=== PATIENT | male | born 1985 | race Caucasian/White ===

== ENCOUNTER 2018-07-08 22:31 | Emergency (ER) | payer BC, SELFPAY ==
[2018-07-08 22:34] VITALS: BP 136/92; PULSE 90; RESP 16; TEMP 36.3; O2SAT 98
--- NOTE | 2018-07-08 22:47 | DI.RAD_ITS ---
SYMPTOM/DIAGNOSIS: COUGH, SOB PA AND LATERAL CHEST: Comparison is made with 26 November 2017. The heart size is normal. The lungs are clear. No infiltrate or effusion is seen. IMPRESSION: Negative chest x-ray
--- NOTE | 2018-07-08 22:48 | W.ED.GENAD ---
Discharge Plan Disposition Patient Disposition: HOME Discharge Details Chief Complaint: RespSymp Clinical Impression: Pneumonia Primary Care Provider: Ashok Acuña ED Provider: Brown Hayden Home Meds and New Rx's Prescriptions: New doxycycline hyclate 100 mg tablet 100 mg PO BID Qty: 11 RF: 0 Continued naproxen 500 MG tablet 500 mg PO PRN PRNRF: 0 Prilosec OTC 20 MG tablet,delayed release (DR/EC) 20 mg PO PRN PRNRF: 0 Discharge Instructions Instructions: Pneumonia (ED) Additional Instructions: Please drink plenty of fluids to stay hydrated. Allow for plenty of rest. Take your antibiotic as prescribed. Please contact your primary care physician to arrange follow-up. Return to the ER for any worsening or new concerning symptoms. Stand Alone Forms: Work Release Referrals: Ashok Acuña MD [Primary Care Provider] - Medical Decision Making 10:54p -- 32-year-old male here with cough, congestion, and shortness of breath over the past 3 days. Patient is saturating well in no respiratory distress. Consider pneumonia versus bronchitis. 11:30 -- cxr reviewed and interpreted by me: ? retrocardiac LLL infiltrate. Plan to treat with doxycycline. Patient advised to rest and drink plenty of fluids. HPI General Mode of arrival: ambulatory. Date/Time Provider Initiated Documentation: 07/08/18 22:47. Limitations to Documentation: no limitations. Information obtained by: patient. HPI Narrative: 32-year-old male here with chief complaint of shortness of breath. Patient notes that for the past 3 days he has had worsening cough with shortness of breath and sinus congestion. Symptoms are moderate. Worse with exertion. Cough is nonproductive. He has no associated fever or aches. Related Data Home Medications Medication Instructions Recorded Confirmed Prilosec OTC 20 mg PO PRN PRN 04/28/16 07/08/18 naproxen 500 mg PO PRN PRN 04/28/16 07/08/18 doxycycline hyclate 100 mg PO BID #11 tab 07/08/18 Previous Rx's Medication Instructions Recorded doxycycline hyclate 100 mg PO BID #11 tab 07/08/18 Allergies Allergy/AdvReac Type Severity Reaction Status Date / Time amoxicillin Allergy Unknown had it as Verified 07/08/18 22:36 a child Penicillins Allergy Unknown Verified 07/08/18 22:36 General Stated Complaint: RespSymp SEVERINO: 3 Review of Systems Constitutional Denies fever(s) ENT Reports nasal congestion Cardiovascular Reports dyspnea Respiratory Reports dyspnea PFSH Social History Smoking/Tobacco Use Status: Former Tobacco Use Exam Const General: cooperative and no acute distress HENMT Head: normocephalic and atraumatic Mouth: moist mucous membranes Throat: uvula midline, no peritonsillar masses and posterior oropharynx abnormal erythema Eyes Conjunctivae: normal conjunctivae Sclera: normal sclerae EOM: EOM intact bilaterally Neck Neck: trachea midline and supple Resp Effort & Inspection: normal respiratory effort and cough Auscultation: no rales, rhonchi and no wheezes Cardio Jugular venous pressure: no JVD Rate: regular rate and not tachycardic Rhythm: regular rhythm GI Palpation: soft, not firm, no guarding, no masses, not rigid and nontender Skin General skin exam: no rashes or lesions noted Neuro General: alert, awake, oriented x3 and tone normal Extrem General: no edema Psych Appearance: grossly normal Speech and Movement: speech and movement normal Course Vital Signs Temperature 36.3 C L 07/08/18 22:34 Pulse 90 07/08/18 22:34 Respiratory Rate 16 07/08/18 22:34 Blood Pressure 136/92 H 07/08/18 22:34 Pulse Oximetry 98 07/08/18 22:34 Temperature 36.3 C L 07/08/18 22:34 Temperature Source Temporal Artery Scan 07/08/18 22:34 Pulse 90 07/08/18 22:34 Respiratory Rate 16 07/08/18 22:34 Respiratory Effort 07/08/18 22:38 Respiratory Depth Normal 07/08/18 22:38 Blood Pressure 136/92 H 07/08/18 22:34 Blood Pressure Position Sitting 07/08/18 22:34 Pulse Oximetry 98 07/08/18 22:34 Oxygen Delivery Method Room Air 07/08/18 22:34 Oxygen Flow Rate 0 07/08/18 22:34
--- NOTE | 2018-07-08 22:57 | ED.GENADUL_ITS ---
Discharge Plan Disposition Patient Disposition: HOME Discharge Details Chief Complaint: RespSymp Clinical Impression: Pneumonia Primary Care Provider: Ashok Acuña ED Provider: Brown Hayden Home Meds and New Rx's Prescriptions: New doxycycline hyclate 100 mg tablet 100 mg PO BID Qty: 11 RF: 0 Continued naproxen 500 MG tablet 500 mg PO PRN PRNRF: 0 Prilosec OTC 20 MG tablet,delayed release (DR/EC) 20 mg PO PRN PRNRF: 0 Discharge Instructions Instructions: Pneumonia (ED) Additional Instructions: Please drink plenty of fluids to stay hydrated. Allow for plenty of rest. Take your antibiotic as prescribed. Please contact your primary care physician to arrange follow-up. Return to the ER for any worsening or new concerning symptoms. Stand Alone Forms: Work Release Referrals: Ashok Acuña MD [Primary Care Provider] - Medical Decision Making 10:54p -- 32-year-old male here with cough, congestion, and shortness of breath over the past 3 days. Patient is saturating well in no respiratory distress. Consider pneumonia versus bronchitis. 11:30 -- cxr reviewed and interpreted by me: ? retrocardiac LLL infiltrate. Plan to treat with doxycycline. Patient advised to rest and drink plenty of fluids. HPI General Mode of arrival: ambulatory . Date/Time Provider Initiated Documentation: 07/08/18 22:47 . Limitations to Documentation: no limitations . Information obtained by: patient . HPI Narrative: 32-year-old male here with chief complaint of shortness of breath. Patient notes that for the past 3 days he has had worsening cough with shortness of breath and sinus congestion. Symp toms are moderate. Worse with exertion. Cough is nonproductive. He has no associated fever or aches. Related Data Home Medications Medication Instructions Recorded Confirmed Prilosec OTC 20 mg PO PRN PRN 04/28/16 07/08/18 naproxen 500 mg PO PRN PRN 04/28/16 07/08/18 doxycycline hyclate 100 mg PO BID #11 tab 07/08/18 Previous Rx's Medication Instructions Recorded doxycycline hyclate 100 mg PO BID #11 tab 07/08/18 Allergies Allergy/AdvReac Type Severity Reaction Status Date / Time amoxicillin Allergy Unknown had it as Verified 07/08/18 22:36 a child Penicillins Allergy Unknown Verified 07/08/18 22:36 General Stated Complaint: RespSymp SEVERINO: 3 Review of Systems Constitutional Denies fever(s) ENT Reports nasal congestion Cardiovascular Reports dyspnea Respiratory Reports dyspnea PFSH Social History Smoking/Tobacco Use Status: Former Tobacco Use Exam Const General: cooperative and no acute distress HENMT Head: normocephalic and atraumatic Mouth: moist mucous membranes Throat: uvula midline, no peritonsillar masses and posterior oropharynx abnormal erythema Eyes Conjunctivae: normal conjunctivae Sclera: normal sclerae EOM: EOM intact bilaterally Neck Neck: trachea midline and supple Resp Effort & Inspection: normal respiratory effort and cough Auscultation: no rales, rhonchi and no wheezes Cardio Jugular venous pressure: no JVD Rate: regular rate and not tachycardic Rhythm: regular rhythm GI Palpation: soft, not firm, no guarding, no masses, not rigid and nontender Skin General skin exam: no rashes or lesions noted Neuro General: alert, awake, oriented x3 and tone normal Extrem General: no edema Psych Appearance: grossly normal Speech and Movement: speech and movement normal Course Vital Signs Temperature 36.3 C L 07/08/18 22:34 Pulse 90 07/08/18 22:34 Respiratory Rate 16 07/08/18 22:34 Blood Pressure 136/92 H 07/08/18 22:34 Pulse Oximetry 98 07/08/18 22:34 Temperature 36.3 C L 07/08/18 22:34 Temperature Source Temporal Artery Scan 07/08/18 22:34 Pulse 90 07/08/18 22:34 Respiratory Rate 16 07/08/18 22:34 Respiratory Effort 07/08/18 22:38 Respiratory Depth Normal 07/08/18 22:38 Blood Pressure 136/92 H 07/08/18 22:34 Blood Pressure Position Sitting 07/08/18 22:34 Pulse Oximetry 98 07/08/18 22:34 Oxygen Delivery Method Room Air 07/08/18 22:34 Oxygen Flow Rate 0 07/08/18 22:34
[2018-07-08] MEDS: Doxycycline Hyclate 100 MG CAP PO (23:25)
--- NOTE | 2018-07-08 23:31 | DI.VRAD_ITS ---
EXAM: XR Chest, 2 Views EXAM DATE/TIME: 07/08/2018 10:48 PM CLINICAL HISTORY: 32 years old, male; Signs and symptoms; Cough and shortness of breath; Patient HX: Cough, SOB; Per PT: 3 days TECHNIQUE: XR of the chest, 2 views. COMPARISON: CR CHEST 2 VIEWS PA,LAT 11/26/2017 10:25 PM FINDINGS: Lungs: Unremarkable. No consolidation. Pleural space: Unremarkable. No pleural effusion. No pneumothorax. Heart/Mediastinum: Unremarkable. No cardiomegaly. Bones/joints: Unremarkable. IMPRESSION: No acute findings. Dictated and Authenticated by: Buster Garcia MD. Ordering:GABRIELLA Dasilva MD
== END 2018-07-08 23:28 | disposition home or self-care (01) ==
LOC: ER 23:34
PROVIDERS: Emergency Provider Student in an Organized Health Care Education/Training Program; PCP General Practice
DX: J18.9 Pneumonia, unspecified organism (principal); Z87.891 Personal history of nicotine dependence
CPT/HCPCS: 99283; 71046

== ENCOUNTER 2018-08-01 22:27 | Emergency (ER) | payer BC, SELFPAY ==
[2018-08-01 22:31] VITALS: BP 141/82; PULSE 102; TEMP 37.2; O2SAT 97
--- NOTE | 2018-08-02 00:30 | ED.GENADUL_ITS ---
Discharge Plan Disposition Patient Disposition: HOME Condition: Stable Discharge Details Chief Complaint: RespSymp Clinical Impression: Laryngitis, Bronchitis Primary Care Provider: Ashok Acuña ED Provider: Courtney Garcia Home Meds and New Rx's Prescriptions: New prednisone 50 mg tablet 50 mg PO DAILY 5 Days Qty: 5 RF: 0 azithromycin [Zithromax] 500 mg tablet 500 mg PO DAILY 5 Days Qty: 5 RF: 0 No Action naproxen 500 MG tablet 500 mg PO PRN PRNRF: 0 Prilosec OTC 20 MG tablet,delayed release (DR/EC) 20 mg PO PRN PRNRF: 0 Discharge Instructions Instructions: Laryngitis (ED), Acute Bronchitis (ED) Additional Instructions: Use your albuterol inhaler that you have at home as needed and directed for any shortness of breath or wheezing. Take the steroids as directed. If you have no relief in symptoms over the next 2-3 days, you may start the antibiotics. Rest your voice over the next few days. Drink plenty of fluids, get plenty of rest, drink hot water with lemon. Follow-up with your primary care doctor in 1 week for reevaluation as needed. Return immediately to the emergency department any worsening or new concerning symptoms. Discharge Data Discharge Physician: Courtney Garcia Medical Decision Making 33 yo male who presents with hoarse voice, cough intermittently dry and productive of yellow sputum, and occasional shortness of breath for the past month. Seen here last month and diagnosed with pneumonia and given doxycycline. CXR was ultimately read as negative for pneumonia. Patient is noted to have hoarse faint voice and exam consistent with laryngitis. Vitals within normal limits. Normal respiratory rate, oxygen saturation and afebrile. Lungs clear to auscultation. Normal ENT exam. Patient states he has had pneumonia in the past and states this does not feel similar with this. Patient was offered but is declining chest x-ray. Discussed with patient that his symptoms can certainly be viral, and to use symptomatic treatment including [id number] cough and cold medication, resting his voice, plenty of fluids. We will send home with a prescription for prednisone. He states he has an albuterol inhaler at home to use as needed for any shortness of breath or wheezing. We will also sent home with a prescription for antibiotics to take if his symptoms do not improve or worsen. He is instructed to follow-up with his primary care doctor for reevaluation and return here at any time if worse HPI General Date/Time Provider Initiated Documentation: 08/01/18 22:33 . Related Data Home Medications Medication Instructions Recorded Confirmed Prilosec OTC 20 mg PO PRN PRN 04/28/16 08/01/18 naproxen 500 mg PO PRN PRN 04/28/16 08/01/18 azithromycin [Zithromax] 500 mg PO DAILY 5 Days #5 tab 08/02/18 prednisone 50 mg PO DAILY 5 Days #5 tab 08/02/18 Previous Rx's Medication Instructions Recorded azithromycin [Zithromax] 500 mg PO DAILY 5 Days #5 tab 08/02/18 prednisone 50 mg PO DAILY 5 Days #5 tab 08/02/18 Allergies Allergy/AdvReac Type Severity Reaction Status Date / Time amoxicillin Allergy Unknown had it as Verified 07/08/18 22:36 a child Penicillins Allergy Unknown Verified 07/08/18 22:36 General Stated Complaint: RespSymp SEVERINO: 3 PFSH Social History Smoking and Tabacco status: Former Tobacco Use Course Vital Signs Temperature 99.0 F 08/01/18 22:31 Pulse 102 H 08/01/18 22:31 Blood Pressure 141/82 H 08/01/18 22:31 Pulse Oximetry 97 08/01/18 22:31 Temperature 99.0 F 08/01/18 22:31 Temperature Source Skin 08/01/18 22:31 Pulse 102 H 08/01/18 22:31 Respiratory Effort Non-Labored 08/01/18 22:36 Respiratory Depth Normal 08/01/18 22:36 Blood Pressure 141/82 H 08/01/18 22:31 Blood Pressure Position Sitting 08/01/18 22:31 Pulse Oximetry 97 08/01/18 22:31 Oxygen Delivery Method Room Air 08/01/18 22:31 Oxygen Flow Rate 0 08/01/18 22:31 Pain Level 0 08/01/18 22:31
== END 2018-08-02 00:40 | disposition home or self-care (01) ==
PROVIDERS: Emergency Provider Physician Assistant; PCP General Practice
DX: J18.9 Pneumonia, unspecified organism (principal); J04.0 Acute laryngitis; Z87.891 Personal history of nicotine dependence
CPT/HCPCS: 99283

== ENCOUNTER 2018-12-23 22:10 | Emergency (ER) | payer BC, SELFPAY ==
[2018-12-23 22:15] VITALS: BP 123/66; PULSE 77; RESP 18; TEMP 36.8; O2SAT 98
--- NOTE | 2018-12-23 23:29 | ED.GENADUL_ITS ---
Discharge Plan Disposition Patient Disposition: HOME Condition: Stable Discharge Details Chief Complaint: Orthopedic Clinical Impression: Strain of right knee Primary Care Provider: Ashok Acuña ED Provider: Naveen Sahu Home Meds and New Rx's Prescriptions: No Action multivitamin Tablet 1 tab PO DAILY RF: 0 glucosamine sulfate [Glucosamine] 500 mg Tablet 1,000 mg PO DAILY RF: 0 ibuprofen [Advil] 200 mg Tablet 400 mg PO QID PRNRF: 0 loratadine [Claritin] 10 mg Tablet 10 mg PO DAILY RF: 0 Fish Oil 120-180 mg Capsule 2 cap PO DAILY RF: 0 naproxen 500 MG tablet 500 mg PO PRN PRNRF: 0 Prilosec OTC 20 MG tablet,delayed release (DR/EC) 20 mg PO PRN PRNRF: 0 Discharge Instructions Instructions: Knee Pain (ED) Additional Instructions: you can take 1000mg tylenol and 600mg ibuprofen every 6 hours for pain as needed if you develop fevers, severe worsening of pain or feel more ill return to the emergency department follow up with your primary care provider if pain continues in a week Stand Alone Forms: Work Release Medical Decision Making 33 yo male comes in with months of knee pain but increased significantly over the past day after he was walking at work at a [employer] and heard a pop. Did not fall or have any trauma. HAs had pain since so came here. He is able to fully range the right knee and bear weight but does limp. He has no swelling or deformity of the knee. Has pain over the medial joint line. No significant swelling. I doubt fracutre given lack of trauma, full rom and bearing weight, I did offer to do an xray but pt declined which I feel is reasonable. I feel this is likely a strain vs meniscus injury. Will place him in knee brace and crutches prn and will have him f/u with pcp in a week, if still in pain may need an MRI. Differential Diagnosis meniscus injury, ligamentous injury, strain HPI General Mode of arrival: ambulatory . Date/Time Provider Initiated Documentation: 12/23/18 22:58 . Limitations to Documentation: no limitations . Information obtained by: patient . History of Present Illness 33 year old M presents to the emergency department with the chief complaint of right knee pain, described as moderate, Quality is described as aching, and is localized to the right and lower extremity. Patient reports no radiation. Patient started experiencing this day(s) (1) and it has been constant. No relieving factors improve symptom(s), No exacerbating factors reported . Patient did receive the following treatments prior to arrival, none Related Data Home Medications Medication Instructions Recorded Confirmed Prilosec OTC 20 mg PO PRN PRN 04/28/16 12/23/18 naproxen 500 mg PO PRN PRN 04/28/16 12/23/18 docosahexanoic acid-epa [Fish Oil] 2 cap PO DAILY 12/23/18 12/23/18 glucosamine sulfate [Glucosamine] 1,000 mg PO DAILY 12/23/18 12/23/18 ibuprofen [Advil] 400 mg PO QID PRN 12/23/18 12/23/18 loratadine [Claritin] 10 mg PO DAILY 12/23/18 12/23/18 multivitamin 1 tab PO DAILY 12/23/18 12/23/18 Allergies Allergy/AdvReac Type Severity Reaction Status Date / Time amoxicillin Allergy Unknown had it as Verified 07/08/18 22:36 a child Penicillins Allergy Unknown Verified 07/08/18 22:36 General Stated Complaint: Orthopedic SEVERINO: 4 Review of Systems Review of Systems All systems reviewed & are unremarkable except as noted in HPI and below Constitutional Denies chills, Denies fever(s) and Denies weakness Cardiovascular Denies chest pain and Denies dyspnea Respiratory Denies dyspnea Gastrointestinal Denies abdominal pain, Denies nausea and Denies vomiting Neurologic Denies weakness [facility] Social History Smoking/Tobacco Use Status: Former Tobacco Use Alcohol Intake: current Alcohol Intake frequency: holidays/special occasions only Alcohol type: beer and hard liquor Drug use: Never Substance use type: does not use Do you feel safe at home: Yes Do you feel safe in your relationship?: Yes Exam Const General: no acute distress Orientation: alert HENMT Head: normal to inspection Ears: external ears normal General nose exam: external nose normal Mouth: moist mucous membranes Eyes General: appearance normal, both eyes and all related structures Neck Neck: normal visual inspection Resp Effort & Inspection: normal respiratory effort and able to speak in complete sentences Cardio Rate: regular rate Skin General skin exam: no rashes or lesions noted Neuro General: alert and oriented x3 Extrem General: normal to inspection Psych Mental Status: mental status grossly normal Course Vital Signs Temperature 36.8 C 12/23/18 22:15 Pulse 77 12/23/18 22:15 Respiratory Rate 18 12/23/18 22:15 Blood Pressure 123/66 12/23/18 22:15 Pulse Oximetry 98 12/23/18 22:15 Temperature 36.8 C 12/23/18 22:15 Temperature Source Skin 12/23/18 22:15 Pulse 77 12/23/18 22:15 Respiratory Rate 18 12/23/18 22:15 Respiratory Effort Non-Labored 12/23/18 22:21 Blood Pressure 123/66 12/23/18 22:15 Blood Pressure Position Supine 12/23/18 22:15 Pulse Oximetry 98 12/23/18 22:15 Oxygen Delivery Method Room Air 12/23/18 22:15 Oxygen Flow Rate 0 12/23/18 22:15 Pain Level 6 12/23/18 22:15 Comment 12/23/18 22:15
--- NOTE | 2018-12-24 08:12 | NUR.NOTE ---
F/U referral faxed to pcp Dr Acuña.Nursing Note:
== END 2018-12-23 23:39 | disposition home or self-care (01) ==
PROVIDERS: Emergency Provider Emergency Medicine; PCP General Practice
DX: S83.91XA Sprain of unspecified site of right knee, initial encounter (principal); X58.XXXA Exposure to other specified factors, initial encounter
CPT/HCPCS: 29505; 99283; 99282; L1810

== ENCOUNTER 2018-12-31 11:03 | Outpatient (CLI) | payer BC, SELFPAY ==
--- NOTE | 2018-12-31 11:01 | DI.RAD_ITS ---
SYMPTOMS/DIAGNOSIS: PAIN X 1 WK RIGHT KNEE: Three views. No priors. No bone, joint or soft tissue abnormality is identified.
== END 2018-12-31 11:23 ==
PROVIDERS: PCP General Practice; Visit Provider General Practice
DX: M25.561 Pain in right knee (principal)
CPT/HCPCS: 73562

== ENCOUNTER 2019-01-13 00:52 | Outpatient (CLI) | payer BC, SELFPAY ==
--- NOTE | 2019-01-13 11:45 | DI.MRI_ITS ---
SYMPTOMS/DIAGNOSIS: RT KNEE PAIN, M25.569 MRI OF THE RIGHT KNEE: Comparison is made with plain films dated [id number]. Fat suppressed T 2 axial, proton density and fat suppressed T 2 axial and coronal and proton density oblique sagittal sequences were performed. There is a normal quantity of joint fluid. The cruciate and collateral ligaments and extensor mechanism appear intact. There is mildly increased signal in the medial meniscus but no definite surfacing tear. No cartilage defects are identified. The marrow signal appears normal. IMPRESSION: Mildly increased intrasubstance signal in the medial meniscus without definite tear.
== END 2019-01-13 01:12 ==
PROVIDERS: PCP General Practice; Visit Provider Orthopaedic Surgery
DX: M25.561 Pain in right knee (principal)
CPT/HCPCS: 73721

== ENCOUNTER 2019-04-21 01:15 | Outpatient (CLI) | payer BC, SELFPAY ==
--- NOTE | 2019-04-21 11:42 | DI.MRI_ITS ---
EXAM: MR LOWER JOINT RT WO CLINICAL HISTORY: PAIN M23.91 INTERNAL DERANGEMENT RT KNEE. TECHNIQUE: Multiplanar multisequence MRI was performed. FINDINGS: The anterior cruciate and posterior cruciate ligaments are intact. The medial and lateral collateral ligaments are intact. The extensor mechanism, medial and lateral retinaculum and popliteus tendon are unremarkable. The articular cartilage is unremarkable. There is no evidence of a meniscal tear. Marrow signal is within normal limits. No evidence of an occult fracture or avascular necrosis. There is a small amount of fluid in the joint space. No significant popliteal cyst is seen. There i s edema seen in the soft tissues around the knee. No focal fluid collection is seen to suggest an ab scess. The muscles show normal signal and size. No evidence of muscular fatty atrophy. IMPRESSION: 1. No evidence of a meniscal or ligament tear. 2. Edema in the soft tissues about the knee.
== END 2019-04-21 01:35 ==
PROVIDERS: PCP General Practice; Visit Provider Orthopaedic Surgery
DX: M25.561 Pain in right knee (principal); M23.91 Unspecified internal derangement of right knee; M25.461 Effusion, right knee; M79.89 Other specified soft tissue disorders
CPT/HCPCS: 73721

== ENCOUNTER 2019-09-16 12:39 | Outpatient (CLI) | payer BC, SELFPAY ==
[2019-09-18 18:37] LABS: SARS-CoV-2 RNA Undetected (Undetected); SARS-CoV-2 Specimen Source Nasopharynx
== END 2019-09-16 12:59 ==
PROVIDERS: Visit Provider Family Medicine
DX: Z11.59 Encounter for screening for other viral diseases (principal)
CPT/HCPCS: U0003

== ENCOUNTER 2019-12-05 10:20 | Outpatient (REF) | payer BC, SELFPAY ==
[2019-12-05 16:52] LABS: Anion Gap 10.8 mmol/L (3-11); BUN 12 mg/dL (7-18); CO2 26.2 mmol/L (21.0-32.0); CREATININE 1.03 mg/dL (0.70-1.30); Calcium 9.2 mg/dL (8.5-10.1); Calculated LDL 99 mg/dL (<100); Chloride 103 mmol/L (98-107); Cholesterol 187 mg/dL (<200); Glucose 95 mg/dL (74-106); HDL Cholesterol 34 mg/dL (40-60); Sodium 140 mmol/L (136-145); TSH 3.82 uIU/mL (0.36-3.74); Triglyceride 272 mg/dL (<150)
[2019-12-05 17:49] LABS: FREE T4 0.95 ng/dL (0.76-1.46)
[2019-12-11 11:40] LABS: Testosterone, Total 379 ng/dL (240-950)
== END 2019-12-05 10:40 ==
LOC: NCHCN 10:20
PROVIDERS: PCP Physician Assistant; Visit Provider Physician Assistant
DX: R03.0 Elevated blood-pressure reading, without diagnosis of hypertension (principal); N52.9 Male erectile dysfunction, unspecified; R53.83 Other fatigue
CPT/HCPCS: 80048; 80061; 84402; 84403; 84439; 84443

== ENCOUNTER 2021-05-23 11:05 | Emergency (ER) | payer BC, SELFPAY ==
[2021-05-23] VITALS (33 sets, daily range): BP systolic 118–138; BP diastolic 51–97; PULSE 71–104; RESP 14–27; TEMP 36.7; O2SAT 94–99
--- NOTE | 2021-05-23 11:45 | RT.EKG_ITS ---
APPROVED REPORT Exam: Resting ECG Reason for Exam: SOB Patient Location: E HR:85 bpm ECG Measurements Heart Rate 85 AXIS LA 161 P 32 QRSd 84 QRS 24 QT 343 T 33 QTc 409 Conclusion Sinus rhythm...normal P axis, V-rate 60- 99 sinus rhythm 85, normal axis, no acute ischemic changes, nondiagnostic EKG
--- NOTE | 2021-05-23 11:52 | W.ED.GENAD ---
Discharge Plan Disposition Patient Disposition: HOME Condition: Stable Discharge Details Clinical Impression: Pneumonia due to COVID-19 virus Primary Care Provider: Glen Sharp ED Provider: Sher Negrete Home Meds and New Rx's Prescriptions: No Action multivitamin Tablet 1 tab PO DAILY RF: 0 ibuprofen [Advil] 200 mg Tablet 400 mg PO QID PRNRF: 0 naproxen 500 MG tablet 500 mg PO PRN PRNRF: 0 omeprazole magnesium [Prilosec OTC] 20 MG tablet,delayed release (DR/EC) 20 mg PO PRN PRNRF: 0 Discharge Instructions Additional Instructions: Please return immediately to the emergency department if you develop any new or worsening symptoms, if your condition does not improve as expected, or if you become otherwise concerned. It is extremely important that you call soon as possible to make an appointment to be seen in follow-up for this visit by your primary care doctor. Stand Alone Forms: COVID-19 Antibody Therapy, POSITIVE COVID-19/NO TESTING Referrals: Glen Sharp [Primary Care Provider] - Discharge Data Discharge Date/Time-TO BE ENTERED AT DEPARTURE: 05/23/21 17:15 Medical Decision Making Ebenezer Mancilla is a 35-year-old man without reported history of medical problems who presented to emergency department with cough, shortness of breath, Covid positive on 05/16/2021. On exam patient is appearing, appears mildly tachypneic during speech. Concern for Covid pneumonia, pulmonary embolism, less likely bacterial pneumonia, covid myocarditis. Exam/history at this time is not consistent with acute coronary syndrome, acute aortic pathology, sepsis. Plan for IV placement, screening labs, EKG, telemetry, CT chest. Will monitor and reassess. Labs reviewed, trop neg, elevated d-dimer. CT shows Covid PNA, no PE. Pt meets criteria for MAB infusion, consented to infusion and recieved this in ED without issue. US performed to r/o LE DVT, which resulted as neg. Ho hypoxia in ED, ambulatory POX performed without hypoxia. Pt given home home pulse oximeter. Emergency department precautions, home care, and importance of outpatient follow-up were discussed with Pt. Pt verbalizes understanding of the plan and is amenable. Patient discharged to home with clear plan for outpatient follow-up. All questions were answered. Disposition decision was made weighing the risks and benefits of hospitalization versus outpatient treatment, the risk for further decompensation, and the patient's wishes.. Medical Records Medical records reviewed: Yes I reviewed the patient's medical records. Imaging Data Radiologic Study: Attestation: I personally reviewed and interpreted this imaging study as follows: Radiologist's impression: EXAM: CT CHEST PE CTA CLINICAL HISTORY: SOB, covid +. TECHNIQUE: Imaging Protocol: CT angiography of the chest was performed using pulmonary embolus protocol. Multi planar reconstructions were performed. CONTRAST MATERIAL: Intravenous: Omnipaque 350 Contrast volume: 100 cc COMPARISON: No exams were available for comparison FINDINGS: CHEST: PULMONARY ARTERIES: Somewhat less than optimal injection. There are no obvious intraluminal filling defects to suggest acute pulmonary emboli. LUNGS: There are extensive bilateral patchy infiltrates throughout both lungs all lobes, highly suspicious forCovid-19 pneumonia.. There are no pleural effusions. MEDIASTINUM: No obvious hilar adenopathy. Mild subcarinal adenopathy CARDIAC: Heart size is upper normal. There is no pericardial effusion.Caliber of the thoracic aorta is within normal limits. There is no significant shift of the interventricular septum. PARTIALLY VISUALIZED UPPERMOST ABDOMEN: Hepatic steatosis noted. Mild splenomegaly. No adrenal masses. OSSEOUS: No significant osseous lesions.. IMPRESSION: 1. No evidence of obvious acute pulmonary emboli. No evidence of pulmonary infarction.No pleural effusions. 2. Extensive patchy bilateral infiltrates, highly suspicious for Covid-19 pneumonia 3. Other findings as above EXAM: US EXTREMITY VENOUS BI CLINICAL HISTORY: COVID +, posterior calf pain TECHNIQUE: Grayscale, color, and doppler imaging of the deep venous system of both lower extremities was performed. COMPARISON: No exams were available for comparison FINDINGS: There is no evidence of intraluminal thrombus and there is normal compression and augmentation demonstrated within the common femoral veins, femoral veins, and popliteal veins of both lower extremities. In the calves the interrogated veins also exhibit normal compression/ augmentation properties. The greater saphenous veins also appear patent as do the saphenofemoral junctions bilaterally.. IMPRESSION: 1. No ultrasound evidence of DVT in either lower extremity. Lab Data Lab results reviewed: Yes I reviewed the patient's lab results. Labs: Laboratory Tests Range/Units 05/23/21 05/23/21 05/23/21 12:15 12:15 12:15 WBC (4.4-10.8) 10^3/uL RBC (4.36-5.78) 10^6/uL Hgb (13.5-17.5) g/dL Hct (40.0-50.0) % MCV (80-95) fL MCH (27.0-33.0) pg MCHC (32.0-36.0) % RDW (11.8-14.1) % Plt Count (130-400) 10^3/uL MPV (8.0-11.0) fL Immature Gran % Neutrophils % Lymphocytes % Monocytes % Eosinophils % Basophils % Nucleated RBC % % Absolute Neutrophils (1.2-6.7) 10^3/uL Absolute Lymphocytes (1.2-3.4) 10^3/uL Absolute Monocytes (0.1-0.8) 10^3/uL Absolute Eosinophils (0.0-0.7) 10^3/uL Absolute Basophils (0.0-0.2) 10^3/uL D-Dimer (<500) ng/mlFEU 733 H Sodium (136-145) mmol/L 140 Potassium (3.5-5.1) mmol/L 3.6 Chloride (98-107) mmol/L 102 Carbon Dioxide (21.0-32.0) mmol/L 28.1 Anion Gap (3-11) mmol/L 9.9 BUN (7-18) mg/dL 11 Creatinine (0.70-1.30) mg/dL 0.9 Estimated GFR/1.73 m2 (mL/min/1.73m2) >= 60.00 Glucose (74-106) mg/dL 117 H Calcium (8.5-10.1) mg/dL 8.2 L Magnesium (1.8-2.4) mg/dL 2.3 Ferritin (26-388) ng/mL 735 H Total Bilirubin (0.2-1.0) mg/dL 0.9 AST (15-37) U/L 25 ALT (16-63) U/L 22 Alkaline Phosphatase (46-116) U/L 66 Lactate Dehydrogenase (85-227) U/L 330 H Troponin I (<or=60) ng/L < 50 Total Protein (6.4-8.2) g/dL 7.6 Albumin (3.4-5.0) g/dL 3.6 Range/Units 05/23/21 05/23/21 12:15 16:30 WBC (4.4-10.8) 10^3/uL 5.33 RBC (4.36-5.78) 10^6/uL 4.87 Hgb (13.5-17.5) g/dL 13.8 Hct (40.0-50.0) % 41.5 MCV (80-95) fL 85.2 MCH (27.0-33.0) pg 28.3 MCHC (32.0-36.0) % 33.3 RDW (11.8-14.1) % 12.3 Plt Count (130-400) 10^3/uL 156 MPV (8.0-11.0) fL 10.2 Immature Gran % 0.4 Neutrophils % 65.5 Lymphocytes % 23.6 Monocytes % 8.8 Eosinophils % 1.5 Basophils % 0.2 Nucleated RBC % % 0 Absolute Neutrophils (1.2-6.7) 10^3/uL 3.49 Absolute Lymphocytes (1.2-3.4) 10^3/uL 1.26 Absolute Monocytes (0.1-0.8) 10^3/uL 0.47 Absolute Eosinophils (0.0-0.7) 10^3/uL 0.08 Absolute Basophils (0.0-0.2) 10^3/uL 0.01 D-Dimer (<500) ng/mlFEU Sodium (136-145) mmol/L Potassium (3.5-5.1) mmol/L Chloride (98-107) mmol/L Carbon Dioxide (21.0-32.0) mmol/L Anion Gap (3-11) mmol/L BUN (7-18) mg/dL Creatinine (0.70-1.30) mg/dL Estimated GFR/1.73 m2 (mL/min/1.73m2) Glucose (74-106) mg/dL Calcium (8.5-10.1) mg/dL Magnesium (1.8-2.4) mg/dL Ferritin (26-388) ng/mL Total Bilirubin (0.2-1.0) mg/dL AST (15-37) U/L ALT (16-63) U/L Alkaline Phosphatase (46-116) U/L Lactate Dehydrogenase (85-227) U/L Troponin I (<or=60) ng/L < 50 Total Protein (6.4-8.2) g/dL Albumin (3.4-5.0) g/dL ECG Data Attestation: I personally reviewed and interpreted this ECG (s) as follows: Interpretation: EKG shows sinus rhythm 85, normal axis, no acute ischemic changes, nondiagnostic EKG HPI General Mode of arrival: ambulatory. Date/Time Provider Initiated Documentation: 05/23/21 11:09. Limitations to Documentation: no limitations. Information obtained by: patient, RN notes reviewed and old records reviewed. HPI Narrative: Ebenezer Mancilla is a 35 y/o man without reported history of major medical problems presenting to emergency department shortness of breath. Patient reports that he developed cough and body aches on 05/14/2021. 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 Patient reports that since then he has had continued cough and fatigue, and has had progressively worsening shortness of breath. Patient reports that he has had decreased appetite but has been hydrating very well. Reports intermittent bilateral posterior calf cramping not currently occurring. He denies any current pain, fevers, vomiting, numbness, weakness, swelling. Patient reports that he did have 2 days of diarrhea several days ago. Patient reports he is a former smoker. Did not receive Covid vaccine. Related Data Home Medications Medication Instructions Recorded Confirmed naproxen 500 mg PO PRN PRN 04/28/16 05/23/21 omeprazole magnesium [Prilosec OTC] 20 mg PO PRN PRN 04/28/16 05/23/21 ibuprofen [Advil] 400 mg PO QID PRN 12/23/18 05/23/21 multivitamin 1 tab PO DAILY 12/23/18 05/23/21 Allergies Allergy/AdvReac Type Severity Reaction Status Date / Time amoxicillin Allergy Unknown had it as Verified 05/23/21 11:14 a child Penicillins Allergy Unknown Verified 05/23/21 11:14 General Stated Complaint: SOB SEVERINO: 3 Review of Systems Narrative: Constitutional: denies fevers Eyes: denies eye pain ENT: denies ear pain, dental pain, sore throat Cardiovascular: denies chest pain, edema Respiratory: Reports SOB, cough GI: denies abdominal pain, vomiting, diarrhea : denies flank pain MSK: denies back pain, neck pain, arthralgias, reports intermittent posterior calf cramping Skin: denies rash Neuro: denies headaches, numbness, weakness PFSH All Active Problems (Updated 05/23/21 @ 16:29 by Krystle Hayden MD) Pneumonia due to COVID-19 virus (Acute) Internal derangement of right knee (Acute 12/22/18) Social History Smoking/Tobacco Use Status: Former Tobacco Use Smoking risk assessment performed?: Yes Alcohol Intake: current Alcohol Intake frequency: holidays/special occasions only Alcohol type: beer and hard liquor Drug use: Never Substance use type: does not use Current gender identity: male Do you feel safe at home: Yes Do you feel safe in your relationship?: Yes Exam Narrative Exam Narrative: Constitutional: [id number], pleasant, becomes somewhat tachypneic during conversation, otherwise conversing normally HENT: head atraumatic/normocephalic/normal inspection, mucous membranes moist Eyes: conjunctiva normal, sclera normal, pupils 3mm b/l Neck: no stridor, normal ROM, trachea midline Chest: normal inspection Resp: normal work of breathing, speaking in full sentences Cardio: normal rate, normal rhythm Skin: warm, dry, normal color, no rash Neuro: alert, not altered, grossly non-focal, normal tone Ext: no edema, no posterior calf tenderness to palpation Psych: normal mood, normal affect, normal behavior Course Vital Signs Vital signs: Vital Signs Temperature 36.7 C 05/23/21 11:11 Pulse 97 H 05/23/21 11:11 Blood Pressure 138/97 H 05/23/21 11:11 Pulse Oximetry 99 05/23/21 11:11 Temperature 36.7 C 05/23/21 11:11 Temperature Source Temporal Artery Scan 05/23/21 11:11 Pulse 97 H 05/23/21 11:11 Respiratory Rate 18 05/23/21 11:15 Respiratory Effort Incrsd Work of Breathing 05/23/21 11:15 Respiratory Depth Normal 05/23/21 11:15 Respiratory Pattern Normal 05/23/21 11:15 Blood Pressure 138/97 H 05/23/21 11:11 Blood Pressure Position Sitting 05/23/21 11:11 Pulse Oximetry 99 05/23/21 11:11 Oxygen Delivery Method Room Air 05/23/21 11:11 Oxygen Flow Rate 0 05/23/21 11:11 Pain Level 4 05/23/21 11:15 Sign Out Sign Out Data: Sign Out Comment: Patient is Covid positive, underwent CT chest showing no PE and monoclonal antibody infusion, signed out to Dr. Negrete at time of shift change with bilateral lower extremity ultrasounds pending, anticipate discharge to home. Last updated by Krystle Hayden MD at 05/23/21 16:24
[2021-05-23 12:27] LABS: Abs Immature Grans 0.02 10^3/uL (0.0-0.06); Absolute Basophil Count 0.01 10^3/uL (0.0-0.2); Absolute Eosinophil Count 0.08 10^3/uL (0.0-0.7); Absolute Lymphocyte Count 1.26 10^3/uL (1.2-3.4); Absolute Monocyte Count 0.47 10^3/uL (0.1-0.8); Absolute Neutrophil Count 3.49 10^3/uL (1.2-6.7); Basophils % 0.2; Eosinophils % 1.5; HCT 41.5 % (40.0-50.0); HGB 13.8 g/dL (13.5-17.5); Immature Grans % 0.4; Lymphocytes % 23.6; MCH 28.3 pg (27.0-33.0); MCHC 33.3 % (32.0-36.0); MCV 85.2 fL (80-95); MPV 10.2 fL (8.0-11.0); Monocytes % 8.8; Neutrophils % 65.5; Nucleated RBC 0 %; Platelet Count 156 10^3/uL (130-400); RBC 4.87 10^6/uL (4.36-5.78); RDW 12.3 % (11.8-14.1); RDW-SD 38.5 fL; WBC 5.33 10^3/uL (4.4-10.8)
[2021-05-23 12:49] LABS: ALT 22 U/L (16-63); AST 25 U/L (15-37); Albumin 3.6 g/dL (3.4-5.0); Alkaline Phosphatase 66 U/L (46-116); Anion Gap 9.9 mmol/L (3-11); BUN 11 mg/dL (7-18); Bilirubin, Total 0.9 mg/dL (0.2-1.0); CO2 28.1 mmol/L (21.0-32.0); CREATININE 0.9 mg/dL (0.70-1.30); Calcium 8.2 mg/dL (8.5-10.1); Chloride 102 mmol/L (98-107); Glucose 117 mg/dL (74-106); Potassium 3.6 mmol/L (3.5-5.1); Sodium 140 mmol/L (136-145); Total Protein 7.6 g/dL (6.4-8.2); Troponin I < 50 ng/L (<or=60)
[2021-05-23 13:02] LABS: LDH 330 U/L (85-227)
[2021-05-23 13:08] LABS: D-Dimer 733 ng/mlFEU (<500)
[2021-05-23 13:14] LABS: Ferritin 735 ng/mL (26-388); Magnesium 2.3 mg/dL (1.8-2.4)
--- NOTE | 2021-05-23 13:45 | DI.CT_ITS ---
Exam(s) CT CHEST PE CTA EXAM: CT CHEST PE CTA CLINICAL HISTORY: SOB, covid +. TECHNIQUE: Imaging Protocol: CT angiography of the chest was performed using pulmonary embolus chuck col. Multi planar reconstructions were performed. CONTRAST MATERIAL: Intravenous: Omnipaque 350 Contrast volume: 100 cc COMPARISON: No exams were available for comparison FINDINGS: CHEST: PULMONARY ARTERIES: Somewhat less than optimal injection. There are no obvious intraluminal filling defects to suggest acute pulmonary emboli. LUNGS: There are extensive bilateral patchy infiltrates throughout both lungs all lobes, highly suspi cious forCovid-19 pneumonia.. There are no pleural effusions. MEDIASTINUM: No obvious hilar adenopathy. Mild subcarinal adenopathy CARDIAC: Heart size is upper normal. There is no pericardial effusion.Caliber of the thoracic aorta is within normal limits. There is no significant shift of the interventricular septum. PARTIALLY VISUALIZED UPPERMOST ABDOMEN: Hepatic steatosis noted. Mild splenomegaly. No adrenal mass es. OSSEOUS: No significant osseous lesions.. IMPRESSION: 1. No evidence of obvious acute pulmonary emboli. No evidence of pulmonary infarction.No pleural eff usions. 2. Extensive patchy bilateral infiltrates, highly suspicious for Covid-19 pneumonia 3. Other findings as above RADIATION DOSE DELIVERED: 565.03mGy.cm Total DLP DATA REPOSITORY: All CT scans at this facility are submitted to the National Radiology Data Registry (NRDR) Dose Index Registry (DIR) with the [employer] ([employer]). RADIATION OPTIMIZATION: All CT scans at this facility use at least one of these dose optimization te chniques: automated exposure control; mA and/or kV adjustment per patient size (includes targeted exa ms where dose is matched to clinical indication); or iterative reconstruction.
[2021-05-23] MEDS: Omnipaque 350 MG/ML 100 ML BTL IJ (13:47)
--- NOTE | 2021-05-23 14:27 | NUR.NOTE ---
1427 antibody infusion started T. 98.7 oral, 125/68, 86, 98% RR 16. Patient informed of symptoms to report like itching or SOB.
--- NOTE | 2021-05-23 14:53 | NUR.NOTE ---
1453 tolerated infusion well. T 98.8, 124/76, 89, 96% RA and RR 17.:
--- NOTE | 2021-05-23 15:45 | DI.US_ITS ---
Exam(s) US EXTREMITY VENOUS BI EXAM: US EXTREMITY VENOUS BI CLINICAL HISTORY: COVID +, posterior calf pain TECHNIQUE: Grayscale, color, and doppler imaging of the deep venous system of both lower extremities was performed. COMPARISON: No exams were available for comparison FINDINGS: There is no evidence of intraluminal thrombus and there is normal compression and augmentation demons trated within the common femoral veins, femoral veins, and popliteal veins of both lower extremities. In the calves the interrogated veins also exhibit normal compression/ augmentation properties. The greater saphenous veins also appear patent as do the saphenofemoral junctions bilaterally.. IMPRESSION: 1. No ultrasound evidence of DVT in either lower extremity. DATA REPOSITORY:
[2021-05-23 17:03] LABS: Troponin I < 50 ng/L (<or=60)
== END 2021-05-23 17:15 | disposition home or self-care (01) ==
PROVIDERS: Student in an Organized Health Care Education/Training Program; Emergency Provider Student in an Organized Health Care Education/Training Program; PCP Physician Assistant
DX: U07.1 COVID-19 (principal); J12.82 Pneumonia due to coronavirus disease 2019; Z87.891 Personal history of nicotine dependence; M79.662 Pain in left lower leg; M79.661 Pain in right lower leg
CPT/HCPCS: 36415; 71275; 80053; 93005; 96365; 99285; 82728; 83615; 83735; 84484; 85025; 85379; 93010; 93970; 99284; J3490

== ENCOUNTER 2022-09-29 16:04 | Outpatient (REF) | payer BC, SELFPAY ==
[2022-09-29 14:43] LABS: HCT 45.1 % (40.0-50.0); HGB 15.2 g/dL (13.5-17.5); MCHC 33.7 % (32.0-36.0); MCV 83 fL (80-95); MPV 10.1 fL (8.0-11.0); Platelet Count 229 10^3/uL (130-400); RBC 5.43 10^6/uL (4.36-5.78); RDW 12.3 % (11.8-14.1); RDW-SD 37.2 fL; WBC 7.59 10^3/uL (4.4-10.8)
[2022-09-29 15:33] LABS: Anion Gap 6.6 mmol/L (3-11); BUN 12 mg/dL (7-18); CO2 27.4 mmol/L (21.0-32.0); CREATININE 1.1 mg/dL (0.70-1.30); Chloride 104 mmol/L (98-107); Estimated GFR 88.12 (mL/min/1.73m2); FREE T4 0.98 ng/dL (0.76-1.46); Glucose 110 mg/dL (74-106); Sodium 138 mmol/L (136-145); TSH 2.79 uIU/mL (0.36-3.74)
[2022-09-29 15:57] LABS: Calculated LDL 88 mg/dL (<100); Cholesterol 165 mg/dL (<200); HDL Cholesterol 37 mg/dL (40-60); Triglyceride 200 mg/dL (<150)
== END 2022-09-29 16:05 | disposition home or self-care (01) ==
LOC: NCHCN 16:04
PROVIDERS: PCP Physician Assistant; Visit Provider Physician Assistant
DX: R53.83 Other fatigue (principal); R03.0 Elevated blood-pressure reading, without diagnosis of hypertension; R79.89 Other specified abnormal findings of blood chemistry
CPT/HCPCS: 80048; 80061; 85027; 83036; 84439; 84443

== ENCOUNTER 2025-04-22 14:01 | Outpatient (REF) | payer BC, SELFPAY ==
[2025-04-22 16:23] LABS: Abs Immature Grans 0.01 10^3/uL (0.0-0.06); HCT 43.2 % (40.0-50.0); HGB 14.5 g/dL (13.5-17.5); Immature Grans % 0.2 %; MCH 28.0 pg (27.0-33.0); MCHC 33.6 % (32.0-36.0); MCV 83 fL (80-95); MPV 10.2 fL (8.0-11.0); Platelet Count 196 10^3/uL (130-400); RBC 5.18 10^6/uL (4.36-5.78); RDW 12.4 % (11.8-14.1); RDW-SD 37.6 fL; WBC 5.85 10^3/uL (4.4-10.8)
[2025-04-22 16:57] LABS: ALT 13 U/L (10-49); AST 18 U/L (<34); Albumin 4.5 g/dL (3.4-5.0); Alkaline Phosphatase 62 U/L (46-116); Anion Gap 10.4 mmol/L (3-11); BUN 14 mg/dL (9-23); Bilirubin, Total 1.00 mg/dL (0.2-1.2); CO2 25.6 mmol/L (20.0-31.0); Calcium 9.0 mg/dL (8.3-10.6); Chloride 106 mmol/L (98-107); Glucose 97 mg/dL (74-106); Potassium 3.7 mmol/L (3.5-5.1); Sodium 142 mmol/L (136-145); Total Protein 7.5 g/dL (5.7-8.2)
[2025-04-22 17:40] LABS: Hemoglobin A1C 5.3 % (<5.7)
== END 2025-04-22 14:02 | disposition home or self-care (01) ==
LOC: NCHCN 14:01
PROVIDERS: PCP Physician Assistant; Visit Provider Physician Assistant
DX: M54.2 Cervicalgia (principal); R73.03 Prediabetes
CPT/HCPCS: 80053; 83036; 85025